=== PATIENT | male | born 1955 | race Caucasian/White ===

== ENCOUNTER 2022-11-08 10:06 | Outpatient (CLI) | payer BC ==
[~2022-11-08] VITALS: Ht 177.8 cm; Wt 107.0 kg
[2022-11-08] MEDS ORDERED: albuterol 2.5 MG/3 ML nebule NEB ONE (10:50)
== END 2022-11-08 23:59 | disposition home or self-care (01) ==
LOC: RT 10:06
PROVIDERS: ATTEND Nurse Practitioner Primary Care
DX: R06.02 Shortness of breath (principal)
CPT/HCPCS: 94060; 94760

== ENCOUNTER 2023-04-24 17:31 | Inpatient (IN) | payer BC ==
[~2023-04-24] VITALS: Ht 177.8 cm; Wt 108.7 kg
[2023-04-24 18:07] LABS: BASOPHILS % (AUTO) 0.5 % (0-1); EOSINOPHILS % (AUTO) 0 % (0-6); HEMATOCRIT 50.2 % (42.0-52.0); HEMOGLOBIN 16.4 g/dl (14.0-17.9); LYMPHOCYTES # (AUTO) 1.7 X10'3 (1.1-4.8); LYMPHOCYTES % (AUTO) 23.8 % (21-51); MEAN CORPUSCULAR HEMOGLOBIN 28.2 PG (27.0-31.0); MEAN CORPUSCULAR HGB CONC 32.8 g/dL (33.0-36.5); MEAN CORPUSCULAR VOLUME 86.1 FL (78-98); MEAN PLATELET VOLUME 8.9 FL (7.4-10.4); MONOCYTES # (AUTO) 0.6 X10'3 (0-0.9); MONOCYTES % (AUTO) 7.9 % (2-12); NEUTROPHILS # (AUTO) 4.9 X10'3 (1.8-7.7); NEUTROPHILS % (AUTO) 67.8 % (42-75); PLATELET COUNT 131 X10'3 (140-440); RED BLOOD COUNT 5.83 X10'6 (4.70-6.10); RED CELL DISTRIBUTION WIDTH 16.1 % (11.5-14.5); WHITE BLOOD COUNT 7.2 X10'3 (4.5-11.0)
[2023-04-24 18:17] LABS: ANION GAP 7 (8-16); BLOOD UREA NITROGEN 19 MG/DL (7-18); BUN/CREATININE RATIO 13.2 (10.0-20.0); CHLORIDE 99 MMOL/L (99-107); CREATININE 1.44 MG/DL (0.60-1.10); GLUCOSE 128 MG/DL (70-104); POTASSIUM 4.5 MMOL/L (3.5-5.1); SODIUM 136 MMOL/L (135-145); TOTAL CARBON DIOXIDE 29.9 MMOL/L (24-32)
[2023-04-24 18:18] LABS: ALANINE AMINOTRANSFERASE 38 U/L (12-78); ALBUMIN 2.8 G/DL (3.4-5.0); ALBUMIN/GLOBULIN RATIO 0.9 (1.1-1.5); ALKALINE PHOSPHATASE 80 IU/L (46-116); ASPARTATE AMINO TRANSFERASE 40 U/L (10-37); BILIRUBIN,TOTAL 0.9 MG/DL (0.1-1.0); TOTAL PROTEIN 5.9 G/DL (6.4-8.2); eGFR 49 ML/MIN
[2023-04-24 19:52] LABS: APTT 32 SECONDS (22-32)
[2023-04-24 19:55] LABS: MAGNESIUM 1.8 MG/DL (1.5-2.4)
[2023-04-24 19:58] LABS: ETHANOL < 0.010 GM/DL (0.0-0.010)
[2023-04-24] MEDS ORDERED: furosemide 10 MG/1 ML 10ml inj IV ONE (20:10)
[2023-04-24] MEDS ORDERED: aspirin 81mg tab.chew PO ONE (20:15)
[2023-04-24] MEDS ORDERED: enoxaparin 100mg/ml syringe SUBCUT ONE (20:15)
[2023-04-24] MEDS ORDERED: magnesium Cl slow-release 64mg tablet PO PRN (20:50)
[2023-04-24] MEDS ORDERED: magnesium hydroxide 30ml (MOM) UD suspension PO PRN (20:50)
[2023-04-24] MEDS ORDERED: magnesium 2GM in 50ml NS 50 ML IV PRN (20:50)
[2023-04-24] MEDS ORDERED: ondansetron/PF 4mg/2ml inj IV PRN (20:50)
[2023-04-24] MEDS ORDERED: potassium Cl 20 mEq SR tablet PO PRN ×2 (20:50)
[2023-04-24] MEDS ORDERED: acetaminophen 325mg tablet PO PRN (20:50)
[2023-04-24] MEDS ORDERED: PERFLUTREN PROTEIN-A MICROSPHR (Optison) 0.22 MG/ML 3ML VIAL IV PRN (20:50)
[2023-04-24] MEDS ORDERED: mag hydrox/Alum hydrox/simeth 30ml oral suspension PO PRN (20:50)
[2023-04-24] MEDS ORDERED: potassium Cl 40MEQ/1/2NS 520ml 520 ML IV PRN (20:50)
[2023-04-24] MEDS ORDERED: magnesium 4gm in 100ml NS 100 ML IV PRN (20:50)
[2023-04-24] MEDS ORDERED: DEXTROSE 15 GM of carb/4 tabs (each vial/BOTTLE has 4 tablets) PO PRN ×2 (20:55)
[2023-04-24] MEDS ORDERED: insulin Lispro (HumaLOG) vial - multi-dose SQ SCH (20:55)
[2023-04-24] MEDS ORDERED: dextrose 50%-water 50ml dispensing syringe IV PRN ×2 (20:55)
[2023-04-24] MEDS ORDERED: glucagon, human recombinant 1mg kit SUBCUT PRN (20:55)
[2023-04-24] MEDS ORDERED: MESSAGE TO PHARMACY PO ONE (20:55)
[2023-04-24 21:10] LABS: HEMOGLOBIN A1C 6.4 % (4.5-6.2)
[2023-04-24 22:30] VITALS: BP 95/66
[2023-04-25 02:30] VITALS: BP 114/74
[2023-04-25] MEDS ORDERED: FURO20TA4 PO (04:39)
[2023-04-25] MEDS ORDERED: ATOR10TA70 PO (04:39)
[2023-04-25] MEDS ORDERED: GABA-530 PO (04:39)
[2023-04-25] MEDS ORDERED: METO-384 PO (04:39)
[2023-04-25] MEDS ORDERED: METF-1203 PO (04:39)
[2023-04-25] MEDS ORDERED: FURO40TA4 PO (04:39)
[2023-04-25 06:00] VITALS: BP 121/80
--- NOTE | 2023-04-25 06:43 | NUR ---
Patient report given, questions answered & plan of care reviewed with MELA Alatorre
--- NOTE | 2023-04-25 06:45 | NUR ---
Patient in room PCU 3012. I have received report from MELA Lopez and had the opportunity to ask questions and assume patient care.
[2023-04-25 07:04] LABS: BASOPHILS % (AUTO) 0.4 % (0-1); EOSINOPHILS % (AUTO) 0.1 % (0-6); HEMATOCRIT 49.4 % (42.0-52.0); HEMOGLOBIN 15.7 g/dl (14.0-17.9); LYMPHOCYTES # (AUTO) 1.9 X10'3 (1.1-4.8); MEAN CORPUSCULAR HEMOGLOBIN 27.5 PG (27.0-31.0); MEAN CORPUSCULAR HGB CONC 31.8 g/dL (33.0-36.5); MEAN CORPUSCULAR VOLUME 86.7 FL (78-98); MEAN PLATELET VOLUME 8.7 FL (7.4-10.4); MONOCYTES # (AUTO) 0.5 X10'3 (0-0.9); MONOCYTES % (AUTO) 9.5 % (2-12); NEUTROPHILS # (AUTO) 3.2 X10'3 (1.8-7.7); PLATELET COUNT 115 X10'3 (140-440); RED CELL DISTRIBUTION WIDTH 16.4 % (11.5-14.5); WHITE BLOOD COUNT 5.7 X10'3 (4.5-11.0)
[2023-04-25 07:18] LABS: ALANINE AMINOTRANSFERASE 42 U/L (12-78); ALBUMIN 2.6 G/DL (3.4-5.0); ALBUMIN/GLOBULIN RATIO 0.9 (1.1-1.5); ALKALINE PHOSPHATASE 72 IU/L (46-116); ANION GAP 8 (8-16); ASPARTATE AMINO TRANSFERASE 41 U/L (10-37); BILIRUBIN,TOTAL 0.8 MG/DL (0.1-1.0); BLOOD UREA NITROGEN 24 MG/DL (7-18); BUN/CREATININE RATIO 17.9 (10.0-20.0); CALCIUM 7.8 MG/DL (8.5-10.1); CHLORIDE 101 MMOL/L (99-107); CREATININE 1.34 MG/DL (0.60-1.10); GLUCOSE 88 MG/DL (70-104); MAGNESIUM 1.8 MG/DL (1.5-2.4); POTASSIUM 4.2 MMOL/L (3.5-5.1); SODIUM 138 MMOL/L (135-145); TOTAL CARBON DIOXIDE 29.4 MMOL/L (24-32); TOTAL PROTEIN 5.6 G/DL (6.4-8.2); eGFR 53 ML/MIN
[2023-04-25] MEDS ORDERED: furosemide 40mg tablet PO SCH (08:00)
[2023-04-25] MEDS: K and/or MAG REPLACEMENT MC SCH ×2 (08:00→19:22)
[2023-04-25] MEDS ORDERED: nitroGLYCERIN 0.4mg SUBLingual tab SL PRN (08:05)
[2023-04-25] MEDS ORDERED: aminophylline 250mg/10ml inj. IV PRN (08:05)
[2023-04-25] MEDS ORDERED: metoprolol tartrate 1mg/ml inj IV PRN (08:05)
[2023-04-25] MEDS ORDERED: regadenoson 0.4mg/5ml syringe IV PRN (08:05)
[2023-04-25] MEDS ORDERED: furosemide 40mg/4ml inj IV ONE (08:20)
[2023-04-25] MEDS: atorvastatin 10mg tablet PO SCH (09:18)
[2023-04-25] MEDS: docusate sod 100mg capsule PO SCH ×2 (09:18→19:32)
[2023-04-25] MEDS: metoprolol tartrate 25mg tablet PO SCH ×2 (09:19→19:34)
[2023-04-25] MEDS: enoxaparin 100mg/ml syringe SUBCUT SCH (09:19)
[2023-04-25] MEDS: gabapentin 100mg capsule PO SCH ×3 (09:19→20:52)
[2023-04-25] MEDS ORDERED: pneumococcal 23-VAL P-sac vacc 25 mcg/0.5ml vial IMVAC ONE (10:00)
[2023-04-25 11:00] VITALS: BP 95/64
[2023-04-25] MEDS ORDERED: DEXTROSE 15 GM of carb/4 tabs (each vial/BOTTLE has 4 tablets) PO PRN ×2 (11:20)
[2023-04-25] MEDS ORDERED: dextrose 50%-water 50ml dispensing syringe IV PRN ×2 (11:20)
[2023-04-25] MEDS ORDERED: MESSAGE TO PHARMACY PO ONE (11:20)
[2023-04-25] MEDS ORDERED: glucagon, human recombinant 1mg kit SUBCUT PRN (11:20)
[2023-04-25] MEDS ORDERED: insulin Lispro (HumaLOG) vial - multi-dose SQ SCH (11:20)
--- NOTE | 2023-04-25 12:56 | NUR ---
PT SAID HE HAD NUCLEAR STUDY TREADMILL STRESS TEST AT DR ELIZALDE'S OFFICE ABOUT 3 WEEKS AGO, KENDRA RN AWARE. 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
--- NOTE | 2023-04-25 12:59 | NUR ---
MESSAGE: DELMI CHUA R IN ROOM 8777V HAD NUCLEAR TREADMILL STRESS TEST AT DR ELIZALDE'S OFFICE 3 WEEKS AGO PER PT. 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
[2023-04-25 15:00] VITALS: BP 110/82
[2023-04-25 18:00] VITALS: BP 111/80
--- NOTE | 2023-04-25 18:05 | NUR ---
Problems reprioritized. Patient report given, questions answered & plan of care reviewed with MELA Preston.
[2023-04-25] MEDS: furosemide 40mg/4ml inj IV SCH (19:34)
[2023-04-25] MEDS: insulin glargine (Lantus) pen - multi-dose SQ SCH (20:55)
[2023-04-25 22:00] VITALS: BP 101/78
[2023-04-26 02:00] VITALS: BP 94/60
[2023-04-26 06:00] VITALS: BP 92/58
--- NOTE | 2023-04-26 06:20 | NUR ---
Patient in room PCU 3012. I have received report from MELA Preston and had the opportunity to ask questions and assume patient care.
[2023-04-26 06:43] LABS: BASOPHILS % (AUTO) 0.3 % (0-1); EOSINOPHILS % (AUTO) 0.4 % (0-6); HEMATOCRIT 48.7 % (42.0-52.0); HEMOGLOBIN 15.4 g/dl (14.0-17.9); LYMPHOCYTES # (AUTO) 2.3 X10'3 (1.1-4.8); LYMPHOCYTES % (AUTO) 38.6 % (21-51); MEAN CORPUSCULAR HEMOGLOBIN 27.4 PG (27.0-31.0); MEAN CORPUSCULAR HGB CONC 31.7 g/dL (33.0-36.5); MEAN CORPUSCULAR VOLUME 86.6 FL (78-98); MEAN PLATELET VOLUME 8.5 FL (7.4-10.4); MONOCYTES # (AUTO) 0.5 X10'3 (0-0.9); NEUTROPHILS # (AUTO) 3.2 X10'3 (1.8-7.7); NEUTROPHILS % (AUTO) 52.7 % (42-75); PLATELET COUNT 119 X10'3 (140-440); RED BLOOD COUNT 5.63 X10'6 (4.70-6.10); RED CELL DISTRIBUTION WIDTH 16.1 % (11.5-14.5); WHITE BLOOD COUNT 6.1 X10'3 (4.5-11.0)
[2023-04-26 07:00] LABS: ALANINE AMINOTRANSFERASE 41 U/L (12-78); ALBUMIN 2.6 G/DL (3.4-5.0); ALBUMIN/GLOBULIN RATIO 0.9 (1.1-1.5); ALKALINE PHOSPHATASE 70 IU/L (46-116); ANION GAP 7 (8-16); ASPARTATE AMINO TRANSFERASE 34 U/L (10-37); BILIRUBIN,TOTAL 0.7 MG/DL (0.1-1.0); BLOOD UREA NITROGEN 25 MG/DL (7-18); BUN/CREATININE RATIO 19.5 (10.0-20.0); CHLORIDE 102 MMOL/L (99-107); CREATININE 1.28 MG/DL (0.60-1.10); GLUCOSE 85 MG/DL (70-104); MAGNESIUM 1.8 MG/DL (1.5-2.4); POTASSIUM 4.2 MMOL/L (3.5-5.1); SODIUM 141 MMOL/L (135-145); TOTAL CARBON DIOXIDE 31.6 MMOL/L (24-32); TOTAL PROTEIN 5.6 G/DL (6.4-8.2); eGFR 56 ML/MIN
[2023-04-26] MEDS: K and/or MAG REPLACEMENT MC SCH ×2 (07:29→19:35)
[2023-04-26] MEDS: furosemide 40mg/4ml inj IV SCH ×2 (07:29→20:43)
[2023-04-26] MEDS: metoprolol tartrate 25mg tablet PO SCH ×2 (07:29→20:43)
[2023-04-26] MEDS: docusate sod 100mg capsule PO SCH ×2 (08:00→20:00)
[2023-04-26] MEDS: gabapentin 100mg capsule PO SCH ×3 (08:22→20:43)
[2023-04-26] MEDS: enoxaparin 100mg/ml syringe SUBCUT SCH (08:22)
[2023-04-26] MEDS: atorvastatin 10mg tablet PO SCH (08:22)
[2023-04-26] MEDS ORDERED: albuterol 2.5 MG/3 ML nebule NEB PRN (08:35)
[2023-04-26] MEDS: ipratropium/albuterol 3ml nebule NEB SCH ×3 (08:53→21:33)
[2023-04-26 11:00] VITALS: BP 113/74
[2023-04-26 15:00] VITALS: BP 117/78
[2023-04-26 18:00] VITALS: BP 127/78
[2023-04-26] MEDS: insulin glargine (Lantus) pen - multi-dose SQ SCH (19:36)
[2023-04-26 22:00] VITALS: BP 99/62
[2023-04-27 02:00] VITALS: BP 96/56
[2023-04-27 06:16] LABS: BASOPHILS % (AUTO) 0.3 % (0-1); EOSINOPHILS % (AUTO) 0.5 % (0-6); HEMOGLOBIN 15.2 g/dl (14.0-17.9); LYMPHOCYTES # (AUTO) 1.9 X10'3 (1.1-4.8); LYMPHOCYTES % (AUTO) 29.5 % (21-51); MEAN CORPUSCULAR HGB CONC 32.3 g/dL (33.0-36.5); MEAN CORPUSCULAR VOLUME 86.9 FL (78-98); MEAN PLATELET VOLUME 8.7 FL (7.4-10.4); MONOCYTES # (AUTO) 0.6 X10'3 (0-0.9); MONOCYTES % (AUTO) 9.8 % (2-12); NEUTROPHILS # (AUTO) 3.8 X10'3 (1.8-7.7); NEUTROPHILS % (AUTO) 59.9 % (42-75); PLATELET COUNT 117 X10'3 (140-440); RED CELL DISTRIBUTION WIDTH 15.9 % (11.5-14.5); WHITE BLOOD COUNT 6.3 X10'3 (4.5-11.0)
[2023-04-27 06:24] LABS: ALANINE AMINOTRANSFERASE 37 U/L (12-78); ALBUMIN 2.5 G/DL (3.4-5.0); ALBUMIN/GLOBULIN RATIO 0.8 (1.1-1.5); ALKALINE PHOSPHATASE 73 IU/L (46-116); ANION GAP 3 (8-16); ASPARTATE AMINO TRANSFERASE 25 U/L (10-37); BILIRUBIN,TOTAL 0.7 MG/DL (0.1-1.0); BLOOD UREA NITROGEN 18 MG/DL (7-18); BUN/CREATININE RATIO 15.1 (10.0-20.0); CALCIUM 7.8 MG/DL (8.5-10.1); CHLORIDE 102 MMOL/L (99-107); CREATININE 1.19 MG/DL (0.60-1.10); GLUCOSE 90 MG/DL (70-104); MAGNESIUM 1.7 MG/DL (1.5-2.4); POTASSIUM 3.7 MMOL/L (3.5-5.1); SODIUM 141 MMOL/L (135-145); TOTAL CARBON DIOXIDE 36.2 MMOL/L (24-32); TOTAL PROTEIN 5.5 G/DL (6.4-8.2); eGFR 61 ML/MIN
[2023-04-27 06:30] VITALS: BP 137/75
--- NOTE | 2023-04-27 06:30 | NUR ---
Problems reprioritized. Patient report given, questions answered & plan of care reviewed with MELA Chavez.
[2023-04-27] MEDS: K and/or MAG REPLACEMENT MC SCH ×2 (08:00→20:00)
[2023-04-27] MEDS: ipratropium/albuterol 3ml nebule NEB SCH ×2 (08:33→20:19)
[2023-04-27] MEDS: enoxaparin 40mg/0.4ml syringe SUBCUT SCH (08:59)
[2023-04-27] MEDS: furosemide 40mg/4ml inj IV SCH ×2 (08:59→20:20)
[2023-04-27] MEDS: metoprolol tartrate 25mg tablet PO SCH ×2 (09:03→20:21)
[2023-04-27] MEDS: lisinopril 2.5mg tablet PO SCH (09:03)
[2023-04-27] MEDS: spironolactone 25 MG tablet PO SCH (09:04)
[2023-04-27] MEDS: gabapentin 100mg capsule PO SCH ×3 (09:04→20:21)
[2023-04-27] MEDS: docusate sod 100mg capsule PO SCH ×2 (09:08→20:20)
[2023-04-27] MEDS: atorvastatin 10mg tablet PO SCH (09:08)
[2023-04-27 11:00] VITALS: BP 110/70
[2023-04-27] MEDS ORDERED: HALLS - SOOTHE MENTHOL 1.8 MG cough drop LOZENGE MM PRN (12:55)
[2023-04-27 15:00] VITALS: BP 122/86
[2023-04-27 18:00] VITALS: BP 126/88
[2023-04-27] MEDS: insulin glargine (Lantus) pen - multi-dose SQ SCH (21:00)
[2023-04-27 22:00] VITALS: BP 122/81
[2023-04-28 02:00] VITALS: BP 129/78
[2023-04-28 06:00] VITALS: BP 121/80
[2023-04-28 06:11] LABS: BASOPHILS % (AUTO) 0.3 % (0-1); EOSINOPHILS % (AUTO) 0.5 % (0-6); HEMATOCRIT 46.9 % (42.0-52.0); HEMOGLOBIN 15.1 g/dl (14.0-17.9); LYMPHOCYTES # (AUTO) 1.6 X10'3 (1.1-4.8); LYMPHOCYTES % (AUTO) 28.2 % (21-51); MEAN CORPUSCULAR HEMOGLOBIN 27.5 PG (27.0-31.0); MEAN CORPUSCULAR HGB CONC 32.1 g/dL (33.0-36.5); MEAN CORPUSCULAR VOLUME 85.5 FL (78-98); MEAN PLATELET VOLUME 8.5 FL (7.4-10.4); MONOCYTES # (AUTO) 0.5 X10'3 (0-0.9); MONOCYTES % (AUTO) 9.1 % (2-12); NEUTROPHILS # (AUTO) 3.4 X10'3 (1.8-7.7); NEUTROPHILS % (AUTO) 61.9 % (42-75); PLATELET COUNT 125 X10'3 (140-440); RED BLOOD COUNT 5.48 X10'6 (4.70-6.10); RED CELL DISTRIBUTION WIDTH 15.7 % (11.5-14.5); WHITE BLOOD COUNT 5.5 X10'3 (4.5-11.0)
[2023-04-28 06:30] LABS: ALANINE AMINOTRANSFERASE 33 U/L (12-78); ALBUMIN 2.4 G/DL (3.4-5.0); ALBUMIN/GLOBULIN RATIO 0.8 (1.1-1.5); ALKALINE PHOSPHATASE 72 IU/L (46-116); ANION GAP 6 (8-16); ASPARTATE AMINO TRANSFERASE 22 U/L (10-37); BLOOD UREA NITROGEN 12 MG/DL (7-18); BUN/CREATININE RATIO 11.5 (10.0-20.0); CALCIUM 7.8 MG/DL (8.5-10.1); CHLORIDE 102 MMOL/L (99-107); CREATININE 1.04 MG/DL (0.60-1.10); GLUCOSE 99 MG/DL (70-104); MAGNESIUM 1.6 MG/DL (1.5-2.4); POTASSIUM 3.5 MMOL/L (3.5-5.1); SODIUM 143 MMOL/L (135-145); TOTAL CARBON DIOXIDE 34.6 MMOL/L (24-32); TOTAL PROTEIN 5.6 G/DL (6.4-8.2); eGFR 71 ML/MIN
--- NOTE | 2023-04-28 06:36 | NUR ---
PAGER ID: [phone] MESSAGE: Joseline had a 7 beat run of V-Tach at 06:12 this morning. His K+ is 3.5 and Mg is 1.6 will replace per protocol. Is there any other interventions you would like to have done this AM? Thanks, MELA Treviño [phone]
--- NOTE | 2023-04-28 06:36 | NUR ---
Problems reprioritized. Patient report given, questions answered & plan of care reviewed with Kathy RN.
[2023-04-28] MEDS: ipratropium/albuterol 3ml nebule NEB SCH ×2 (07:23→21:09)
[2023-04-28] MEDS: metoprolol tartrate 25mg tablet PO SCH (07:57)
[2023-04-28] MEDS: spironolactone 25 MG tablet PO SCH (07:58)
[2023-04-28] MEDS: gabapentin 100mg capsule PO SCH ×3 (07:58→21:07)
[2023-04-28] MEDS: lisinopril 2.5mg tablet PO SCH (07:58)
[2023-04-28] MEDS: atorvastatin 10mg tablet PO SCH (07:58)
[2023-04-28] MEDS: docusate sod 100mg capsule PO SCH ×2 (08:00→19:33)
[2023-04-28] MEDS: furosemide 40mg/4ml inj IV SCH ×2 (08:00→19:30)
[2023-04-28] MEDS: enoxaparin 40mg/0.4ml syringe SUBCUT SCH (08:01)
[2023-04-28] MEDS ORDERED: magnesium 2GM in 50ml NS 50 ML IV PRN ×2 (08:20→13:05)
[2023-04-28] MEDS ORDERED: magnesium 4gm in 100ml NS 100 ML IV PRN ×2 (08:20→13:05)
[2023-04-28] MEDS ORDERED: potassium Cl 40MEQ/1/2NS 520ml 520 ML IV PRN ×2 (08:20→13:05)
[2023-04-28] MEDS ORDERED: magnesium Cl slow-release 64mg tablet PO PRN (08:20)
[2023-04-28] MEDS ORDERED: potassium Cl 20 mEq SR tablet PO PRN ×2 (08:20→13:05)
[2023-04-28] MEDS: K and/or MAG REPLACEMENT MC SCH ×3 (08:39→20:00)
[2023-04-28] MEDS ORDERED: magnesium 2GM in 50ml NS 50 ML IV ONE (08:55)
[2023-04-28 11:00] VITALS: BP 113/76
[2023-04-28] MEDS: potassium Cl 20 mEq SR tablet PO PRN ×2 (12:54→18:02)
[2023-04-28] MEDS ORDERED: potassium CL 10mEq/100ml bag 100 ML IV PRN (13:05)
[2023-04-28] MEDS ORDERED: potassium Cl 20mEq/100mL bag 100 ML IV PRN (13:05)
[2023-04-28] MEDS ORDERED: potassium Cl 40MEQ/270ML bag 250 ML IV PRN (13:05)
[2023-04-28 14:00] VITALS: BP 108/64
--- NOTE | 2023-04-28 17:52 | NUR ---
Pt AOX4, cooperative with medication and interventions this shift. Pt on Tele, denies CP. Pt had a 7 beat run of VTACH this AM at 06:12. Replaced MG and K+ this shift per protocol. Dr Vela verbally requests K+ to be 4.0 or above. Pt will be NPO tomorrow after breakfast for possible cardiac cath later in afternoon. Pt's family in to visit this evening. Pt c/o pain at IV site. Pt needs new PIV placed and to sign the consent for cardiac cath tomorrow. Pt in NAD at this time.
[2023-04-28 18:00] VITALS: BP 129/82
[2023-04-28] MEDS: insulin glargine (Lantus) pen - multi-dose SQ SCH (21:00)
[2023-04-28 22:00] VITALS: BP 112/65
[2023-04-29] VITALS (9 sets, daily range): BP systolic 103–131; BP diastolic 62–88
--- NOTE | 2023-04-29 06:38 | NUR ---
Problems reprioritized. Patient report given, questions answered & plan of care reviewed with SEBASTIÁN. MELA
[2023-04-29 06:55] LABS: BASOPHILS % (AUTO) 0.3 % (0-1); EOSINOPHILS % (AUTO) 0.2 % (0-6); HEMATOCRIT 48.2 % (42.0-52.0); HEMOGLOBIN 15.4 g/dl (14.0-17.9); LYMPHOCYTES # (AUTO) 1.3 X10'3 (1.1-4.8); LYMPHOCYTES % (AUTO) 17.6 % (21-51); MEAN CORPUSCULAR HEMOGLOBIN 27.4 PG (27.0-31.0); MEAN CORPUSCULAR VOLUME 85.8 FL (78-98); MEAN PLATELET VOLUME 9.1 FL (7.4-10.4); MONOCYTES # (AUTO) 0.7 X10'3 (0-0.9); NEUTROPHILS # (AUTO) 5.4 X10'3 (1.8-7.7); NEUTROPHILS % (AUTO) 71.9 % (42-75); PLATELET COUNT 129 X10'3 (140-440); RED BLOOD COUNT 5.62 X10'6 (4.70-6.10); RED CELL DISTRIBUTION WIDTH 15.3 % (11.5-14.5); WHITE BLOOD COUNT 7.5 X10'3 (4.5-11.0)
[2023-04-29 07:06] LABS: ALANINE AMINOTRANSFERASE 29 U/L (12-78); ALBUMIN 2.4 G/DL (3.4-5.0); ALBUMIN/GLOBULIN RATIO 0.7 (1.1-1.5); ALKALINE PHOSPHATASE 70 IU/L (46-116); ANION GAP 4 (8-16); ASPARTATE AMINO TRANSFERASE 19 U/L (10-37); BILIRUBIN,TOTAL 1.4 MG/DL (0.1-1.0); BLOOD UREA NITROGEN 14 MG/DL (7-18); BUN/CREATININE RATIO 13.9 (10.0-20.0); CALCIUM 8.2 MG/DL (8.5-10.1); CHLORIDE 98 MMOL/L (99-107); CREATININE 1.01 MG/DL (0.60-1.10); GLUCOSE 127 MG/DL (70-104); POTASSIUM 3.6 MMOL/L (3.5-5.1); SODIUM 135 MMOL/L (135-145); TOTAL CARBON DIOXIDE 33.4 MMOL/L (24-32); eGFR 74 ML/MIN
--- NOTE | 2023-04-29 07:32 | NUR ---
Patient in room PCU 3012. I have received report from Valencia PLAZA and had the opportunity to ask questions and assume patient care.
[2023-04-29] MEDS ORDERED: metoprolol succinate 25mg (24-HOUR) SR. Tablet PO SCH (08:00)
[2023-04-29] MEDS: K and/or MAG REPLACEMENT MC SCH ×4 (08:00→20:00)
[2023-04-29] MEDS: enoxaparin 40mg/0.4ml syringe SUBCUT SCH (08:00)
[2023-04-29] MEDS: docusate sod 100mg capsule PO SCH ×2 (08:00→20:00)
[2023-04-29] MEDS: ipratropium/albuterol 3ml nebule NEB SCH ×2 (08:01→21:27)
[2023-04-29] MEDS: spironolactone 25 MG tablet PO SCH (08:31)
[2023-04-29] MEDS: lisinopril 2.5mg tablet PO SCH (08:32)
[2023-04-29] MEDS: gabapentin 100mg capsule PO SCH ×3 (08:32→21:10)
[2023-04-29] MEDS: furosemide 40mg/4ml inj IV SCH ×2 (08:33→20:00)
[2023-04-29] MEDS: potassium Cl 20 mEq SR tablet PO PRN ×2 (08:33→13:13)
[2023-04-29] MEDS: atorvastatin 20mg tablet PO SCH (08:33)
[2023-04-29 08:52] LABS: CHOL/HDL RATIO 2.9 (0.00-4.99); CHOLESTEROL 106 MG/DL (0-200); HDL CHOLESTEROL 36 MG/DL (35-60); LDL CHOLESTEROL 63 MG/DL (50-100); TRIGLYCERIDES 43 MG/DL (20-135)
--- NOTE | 2023-04-29 13:38 | NUR ---
Initial: Pt admit DX CHF, CKD 3 and increasing pedal edema s/p diuresis receiving routine lasix per EMR. Hx DM past 1-2 years though A1C 6.4% w/ no home meds listed this AM in EMR. Pt NPO this AM for cardiac cath though PO mostly ~100% initial heart healthy/carb controlled meals meeting 100% protein and ~91% kcal estimated needs. IBW used for estimated needs since pt -7.6L cumulative fluid balance and subsequent 7kg this admit per EMR. KAREN jewell MD recommends removal of carb controlled diet if agreeable given A1C, Glu 123-141mg/dl without DM medications, and to better meet nutrient needs given stature. LBM 04/28 receiving routine colace per EMR. No further nutrition interventions at this time. Will continue to follow. Rec: 1. continue heart healthy diet per MD; consider removal of carb controlled diet restriction given A1C, Glu range, and pt stature 2. routine bowel care 3. daily scaled wt Addendum: 04/29/23 at [address] Amended: Links added.
[2023-04-29] MEDS ORDERED: heparin 1,000 UNITS/NS 500ml 500 ML ONE ×2 (15:46→17:27)
[2023-04-29] MEDS ORDERED: iohexol 350MG/ML 100ml bottle IV ONE ×2 (15:46→17:17)
[2023-04-29] MEDS ORDERED: LIDOcaine 1% (10mg/ml)w/preservative inj. 20ml MDV ONE (15:46)
[2023-04-29] MEDS ORDERED: midazolam 1 mg/ML 2ml injection ONE (16:59)
[2023-04-29] MEDS ORDERED: fentaNYL/PF 50MCG/1 ML 2ML syringe ONE (17:00)
[2023-04-29] MEDS ORDERED: furosemide 40mg/4ml inj ONE (17:19)
[2023-04-29] MEDS ORDERED: heparin 1,000unit/ml 10ml vial 0 ML ONE (17:27)
[2023-04-29] MEDS ORDERED: HYDROcodone/acetaminophen 5mg/325mg tablet PO PRN (18:20)
[2023-04-29] MEDS ORDERED: HYDROcodone/acetaminophen 10/325mg tab PO PRN (18:20)
--- NOTE | 2023-04-29 18:48 | NUR ---
Problems reprioritized. Patient report given, questions answered & plan of care reviewed with Maria Alejandra PLAZA.
[2023-04-29] MEDS: insulin glargine (Lantus) pen - multi-dose SQ SCH (21:00)
--- NOTE | 2023-04-29 22:59 | NUR ---
pt's b/s was 235 around 2040,first time pt's b/s read above 160.Pt was advised on insulin inj, but He refused saying that the reading was wrong ,that He wants it to be rechecked later. B/s was rechecked around 2207 and it read 151.No insulin given.
[2023-04-30 02:00] VITALS: BP 115/77
--- NOTE | 2023-04-30 06:19 | NUR ---
Problems reprioritized. Patient report given, questions answered & plan of care reviewed with Diego PLAZA.
--- NOTE | 2023-04-30 06:23 | NUR ---
Patient in room PCU 3012. I have received report from Sera PLAZA and had the opportunity to ask questions and assume patient care.
[2023-04-30 07:00] VITALS: BP 100/66
[2023-04-30] MEDS: K and/or MAG REPLACEMENT MC SCH ×4 (08:00→20:00)
[2023-04-30] MEDS: docusate sod 100mg capsule PO SCH ×2 (08:00→20:00)
[2023-04-30] MEDS: furosemide 40mg/4ml inj IV SCH ×2 (08:21→20:11)
[2023-04-30] MEDS: metoprolol succinate 25mg (24-HOUR) SR. Tablet PO SCH (08:22)
[2023-04-30] MEDS: atorvastatin 20mg tablet PO SCH (08:22)
[2023-04-30] MEDS: spironolactone 25 MG tablet PO SCH (08:22)
[2023-04-30] MEDS: gabapentin 100mg capsule PO SCH ×3 (08:22→20:14)
[2023-04-30] MEDS: enoxaparin 40mg/0.4ml syringe SUBCUT SCH (08:23)
[2023-04-30] MEDS: lisinopril 2.5mg tablet PO SCH (08:23)
[2023-04-30 11:00] VITALS: BP 100/62
[2023-04-30] MEDS: cephalexin 500mg capsule PO SCH ×3 (11:51→20:14)
[2023-04-30 15:00] VITALS: BP 100/64
--- NOTE | 2023-04-30 16:43 | NUR ---
O2 Sat at rest on room air:_94__% If below 89%: Recovery O2 Sat at rest on ___LPM:___%:___% via (mask/nasal cannula, etc..) No further documentation is necessary. If O2 Sat did not drop below 89% on room air,ambulate patient on room air. O2 Sat while ambulating on room air:_88__% Recovery O2 Sat while ambulating on _2__LPM:_94__% No further documentation is necessary. If patient does not drop below 89% while ambulating, he/she does not qualify for home O2.
[2023-04-30 18:00] VITALS: BP 105/56
--- NOTE | 2023-04-30 18:38 | NUR ---
Problems reprioritized. Patient report given, questions answered & plan of care reviewed with Maria Alejandra PLAZA.
[2023-04-30] MEDS: ipratropium/albuterol 3ml nebule NEB SCH ×2 (19:41→23:38)
[2023-04-30] MEDS: insulin glargine (Lantus) pen - multi-dose SQ SCH (21:00)
[2023-04-30 22:00] VITALS: BP 106/65
[2023-05-01] MEDS: cephalexin 500mg capsule PO SCH ×3 (01:41→13:45)
[2023-05-01 02:00] VITALS: BP 95/62
--- NOTE | 2023-05-01 06:18 | NUR ---
Problems reprioritized. Patient report given, questions answered & plan of care reviewed with Diego PLAZA.
--- NOTE | 2023-05-01 06:31 | NUR ---
Patient in room PCU 3012. I have received report from Maria Alejandra PLAZA and had the opportunity to ask questions and assume patient care.
[2023-05-01 06:45] LABS: BASOPHILS # (AUTO) 0.1 X10'3 (0-0.2); BASOPHILS % (AUTO) 0.9 % (0-1); EOSINOPHILS # (AUTO) 0.1 X10'3 (0-0.9); EOSINOPHILS % (AUTO) 0.9 % (0-6); HEMATOCRIT 48.8 % (42.0-52.0); HEMOGLOBIN 15.8 g/dl (14.0-17.9); LYMPHOCYTES # (AUTO) 1.6 X10'3 (1.1-4.8); LYMPHOCYTES % (AUTO) 22.6 % (21-51); MEAN CORPUSCULAR HEMOGLOBIN 27.6 PG (27.0-31.0); MEAN CORPUSCULAR HGB CONC 32.4 g/dL (33.0-36.5); MEAN CORPUSCULAR VOLUME 85.3 FL (78-98); MEAN PLATELET VOLUME 8.5 FL (7.4-10.4); MONOCYTES # (AUTO) 0.6 X10'3 (0-0.9); MONOCYTES % (AUTO) 8.4 % (2-12); NEUTROPHILS # (AUTO) 4.8 X10'3 (1.8-7.7); NEUTROPHILS % (AUTO) 67.2 % (42-75); PLATELET COUNT 161 X10'3 (140-440); RED BLOOD COUNT 5.73 X10'6 (4.70-6.10); RED CELL DISTRIBUTION WIDTH 15.5 % (11.5-14.5); WHITE BLOOD COUNT 7.2 X10'3 (4.5-11.0)
[2023-05-01 07:00] VITALS: BP 103/69
[2023-05-01 07:13] LABS: ALANINE AMINOTRANSFERASE 42 U/L (12-78); ALBUMIN 2.3 G/DL (3.4-5.0); ALBUMIN/GLOBULIN RATIO 0.5 (1.1-1.5); ALKALINE PHOSPHATASE 73 IU/L (46-116); ANION GAP 7 (8-16); ASPARTATE AMINO TRANSFERASE 30 U/L (10-37); BILIRUBIN,TOTAL 1.2 MG/DL (0.1-1.0); BLOOD UREA NITROGEN 21 MG/DL (7-18); BUN/CREATININE RATIO 18.6 (10.0-20.0); CALCIUM 8.3 MG/DL (8.5-10.1); CHLORIDE 96 MMOL/L (99-107); CREATININE 1.13 MG/DL (0.60-1.10); GLUCOSE 117 MG/DL (70-104); POTASSIUM 3.7 MMOL/L (3.5-5.1); SODIUM 134 MMOL/L (135-145); TOTAL CARBON DIOXIDE 30.6 MMOL/L (24-32); TOTAL PROTEIN 6.5 G/DL (6.4-8.2); eGFR 65 ML/MIN
[2023-05-01] MEDS: ipratropium/albuterol 3ml nebule NEB SCH (07:31)
[2023-05-01] MEDS ORDERED: EMPAGLIFLOZIN 10 MG TABLET PO SCH (08:00)
[2023-05-01] MEDS: docusate sod 100mg capsule PO SCH (08:00)
[2023-05-01] MEDS: K and/or MAG REPLACEMENT MC SCH ×2 (08:00)
[2023-05-01] MEDS: furosemide 40mg/4ml inj IV SCH (08:32)
[2023-05-01] MEDS: enoxaparin 40mg/0.4ml syringe SUBCUT SCH (08:33)
[2023-05-01] MEDS: metoprolol succinate 25mg (24-HOUR) SR. Tablet PO SCH (08:33)
[2023-05-01] MEDS: spironolactone 25 MG tablet PO SCH (08:34)
[2023-05-01] MEDS: gabapentin 100mg capsule PO SCH ×2 (08:34→13:45)
[2023-05-01] MEDS: atorvastatin 20mg tablet PO SCH (08:34)
[2023-05-01 11:00] VITALS: BP 107/60
[2023-05-01] MEDS ORDERED: EMPA10TA PO (11:21)
[2023-05-01] MEDS ORDERED: CEPH-585 PO (11:21)
[2023-05-01] MEDS ORDERED: SPIR25TA PO (11:21)
--- NOTE | 2023-05-01 18:15 | NUR ---
Pt was DC'd as per Dr's orders. All IV and tele was unhooked. Education was provided at bedside to pt and spouse, all questions were answered. 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 All of pt's belongings were gathered up and sent with pt. Pt was wheeled down to lobby in wheelchair by myself and loaded in private vehicle destined for home.
== END 2023-05-01 17:47 | disposition home or self-care (01) | DRG 280 ==
LOC: ER 17:32 → ED HOLD 20:53 → PCU 3S 22:15
PROVIDERS: ADMIT Internal Medicine; ATTEND Family Medicine
PROC: 4A023N7 Measurement of Cardiac Sampling and Pressure, Left Heart, Percutaneous Approach (ICD-10-PCS; principal; 2023-04-29)
PROC: B2111ZZ Fluoroscopy of Multiple Coronary Arteries using Low Osmolar Contrast (ICD-10-PCS; 2023-04-29)
PROC: B2131ZZ Fluoroscopy of Multiple Coronary Artery Bypass Grafts using Low Osmolar Contrast (ICD-10-PCS; 2023-04-29)
DX: I21.4 Non-ST elevation (NSTEMI) myocardial infarction (principal); I50.43 Acute on chronic combined systolic (congestive) and diastolic (congestive) heart failure; J96.20 Acute and chronic respiratory failure, unspecified whether with hypoxia or hypercapnia; T82.898A Other specified complication of vascular prosthetic devices, implants and grafts, initial encounter; I13.0 Hypertensive heart and chronic kidney disease with heart failure and stage 1 through stage 4 chronic kidney disease, or unspecified chronic kidney disease; I42.0 Dilated cardiomyopathy; L03.113 Cellulitis of right upper limb; J44.9 Chronic obstructive pulmonary disease, unspecified; E78.00 Pure hypercholesterolemia, unspecified; I25.10 Atherosclerotic heart disease of native coronary artery without angina pectoris; I80.9 Phlebitis and thrombophlebitis of unspecified site; N18.30 Chronic kidney disease, stage 3 unspecified; E11.40 Type 2 diabetes mellitus with diabetic neuropathy, unspecified; Y83.8 Other surgical procedures as the cause of abnormal reaction of the patient, or of later complication, without mention of misadventure at the time of the procedure; E11.22 Type 2 diabetes mellitus with diabetic chronic kidney disease; Z96.611 Presence of right artificial shoulder joint; Z95.1 Presence of aortocoronary bypass graft; I25.2 Old myocardial infarction; Z88.0 Allergy status to penicillin; Z87.891 Personal history of nicotine dependence; Y92.89 Other specified places as the place of occurrence of the external cause
CPT/HCPCS: 36415; 71045; 80053; 80061; 80320; 82948; 83036; 83735; 83880; 84484; 85025; 85610; 85730; 87081; 93005; 93306; 93459; 94640; 94760; 99152; 99153; 99285; A4615; A4620; A6258; A6449; C1760; G0378; J1644; J1650; J1815; J1940; J2250; J3010; J3475; J3490; J7030; J7040; Q9967